=== PATIENT | male | born 1980 | race Hispanic/Latino ===

== ENCOUNTER 2016-08-01 08:07 | Emergency (ER) | payer OTHER ==
[2016-08-01 08:15] VITALS: BMI 22.4
[2016-08-01 08:17] VITALS: TEMP 98
[2016-08-01] MEDS ORDERED: Naproxen 550 mg Tab PO STA (09:21)
--- NOTE | 2016-08-01 09:25 | ED PDOC ---
Arrival/HPI - General Chief Complaint: Dental Pain Time Seen by Provider: 08/01/16 09:14 Historian: Patient - History of Present Illness Narrative History of Present Illness (Text): 08/01/16 09:22 This 36 yo male presents to this ED c/o right dental abscess since yesterday. Patient admits similar symptoms in the past. Patient stated he has dental caries, and he does not have a dentist. However, he is aware [facility], he may go there. Patient denies drainage, dental trauma, fever, facial rash, or GODWIN. Time/Duration: Other (1 day) Context: Home Past Medical History - Provider Review Nursing Documentation Reviewed: Yes - Infectious Disease Hx of Infectious Diseases: None - Psychiatric Hx Psychophysiologic Disorder: No Hx Anxiety: No Hx Bipolar Disorder: No Hx Depression: No Hx Emotional Abuse: No Hx Hallucinations: No Hx Panic Disorder: No Hx Post Traumatic Stress Disorder: No Hx Psychosis: No Hx Physical Abuse: No Hx Schizophrenia: No Hx Sexual Abuse: No Hx Substance Use: No - Anesthesia Hx Anesthesia: No Hx Anesthesia Reactions: No Hx Malignant Hyperthermia: No Family/Social History - Physician Review Nursing Documentation Reviewed: Yes Family/Social History: No Known Family HX Smoking Status: Light Smoker < 10 Cigarettes Daily Hx Alcohol Use: Yes ("once per week") Hx Substance Use: No Allergies/Home Meds Allergies/Adverse Reactions: Allergies No Known Allergies Allergy (Verified 08/01/16 08:14) Review of Systems - Review of Systems Constitutional: Normal. absent: Fatigue, Weight Change, Fevers Eyes: Normal ENT: Other (dental pain) Respiratory: Normal. absent: SOB, Cough Cardiovascular: Normal Gastrointestinal: Normal. absent: Abdominal Pain, Nausea, Vomiting Genitourinary Male: Normal. absent: Dysuria Musculoskeletal: Normal Skin: Normal. absent: Rash Neurological: Normal. absent: Headache, Dizziness, Focal Weakness, Gait Changes , Speech Changes, Facial Droop, Disequilibrium, Seizure Endocrine: Normal Hemo/Lymphatic: Normal Psychiatric: Normal Physical Exam Vital Signs Temp Pulse Resp BP Pulse Ox 08/01/16 08:15 98 F 75 16 131/81 98 Temperature: Afebrile Blood Pressure: Normal Pulse: Regular Respiratory Rate: Normal Appearance: Positive for: Well-Appearing, Non-Toxic, Comfortable Pain Distress: None Mental Status: Positive for: Alert and Oriented X 3 - Systems Exam Head: Present: Atraumatic, Normocephalic Pupils: Present: PERRL Extroacular Muscles: Present: EOMI Conjunctiva: Present: Normal Mouth: Present: Moist Mucous Membranes, Normal Lips, Normal Tounge. No: Drooling, Trismus, Normal Teeth (scattered denta caries. (+) mild swelling of gum tooth #30. No fluctuance, or drainage. Right submandibular lymph node is reactive. No facial erythema or rash observed) Neck: Present: Normal Range of Motion Respiratory/Chest: Present: Clear to Auscultation, Good Air Exchange. No: Respiratory Distress, Accessory Muscle Use Cardiovascular: Present: Regular Rate and Rhythm, Normal S1, S2. No: Murmurs Abdomen: Present: Normal Bowel Sounds. No: Tenderness, Distention, Peritoneal Signs Back: Present: Normal Inspection. No: CVA Tenderness Upper Extremity: Present: Normal Inspection. No: Cyanosis, Edema Lower Extremity: Present: Normal Inspection. No: Edema Neurological: Present: GCS=15, CN II-XII Intact, Speech Normal Skin: Present: Warm, Dry, Normal Color. No: Rashes Psychiatric: Present: Alert, Oriented x 3 Medical Decision Making ED Course and Treatment: 08/01/16 09:29 Discharge Instructions: Re-evaluation. Patient feels better. Discussed results and plan with patient who expresses understanding. All questions answered and there is agreement with the plan to discharge home with instructions. Patient stable for discharge. Return if symptoms persist or worsen. patient was recommended to be seen at [facility] in [place], [place] for revaluation in 1-2 days. Re-evaluation Time: 09:29 Reassessment Condition: Re-examined, Improved Disposition/Present on Arrival - Present on Arrival Any Indicators Present on Arrival: No History of DVT/PE: No History of Uncontrolled Diabetes: No Urinary Catheter: No History of Decub. Ulcer: No History Surgical Site Infection Following: None - Disposition Have Diagnosis and Disposition been Completed?: Yes Diagnosis: Dental caries, Tooth infection Disposition: HOME/ ROUTINE Disposition Time: 09:30 Patient Plan: Discharge Patient Problems: Current Active Problems Problem Status Onset Dental caries Acute Tooth infection Acute Condition: GOOD Discharge Instructions (ExitCare): Dental Caries (ED) Additional Instructions: Call [facility] Call for appointment. Fees - Sliding scale; Medicaid & all insurance accepted Business Hours M-F 8:00am-4:00pm [facility], Division of Oral Medicine (DS) Contact Information: [address] [place] [phone] Return to emergency if symptoms worsen. Prescriptions: Chlorhexidine 0.12% [Peridex] 15 ml PO BID #1 bottle Clindamycin [Cleocin] 300 mg PO TID #30 cap Naproxen 500 mg PO BID #14 tab Referrals: PCP,NO [Primary Care Provider] - Follow up with primary [facility] [Outside] - Follow up with primary [facility] [Outside] - Follow up with primary Forms: WORK NOTE
[2016-08-01 09:42] VITALS: BP 129/80; PULSE 70; RESP 17; O2SAT 99
== END 2016-08-01 09:42 | disposition home or self-care (01) ==
LOC: ED 08:07
DX: K02.9 Dental caries, unspecified (principal); K04.7 Periapical abscess without sinus